=== PATIENT | male | born 1955 | race Caucasian/White ===

== ENCOUNTER → 2022-10-04 | Outpatient (REF) | payer OTHER ==
[~2022-10-04] MED LIST: ASPI81TA26 PO; LIPI20TA PO; LISI5TAB11 PO
[2022-10-04 19:41] LABS: HEMOGLOBIN A1c 4.8 % (4.0-6.0)
[2022-10-04 19:42] LABS: ALKALINE PHOSPHATASE 79 U/L (46-116); ALT/SGPT 25 U/L (7.0-40); AST/SGOT 22 U/L (<34); BILIRUBIN,DIRECT 0.3 MG/DL (<0.4); BLOOD UREA NITROGEN 19 MG/DL (9-23); CALCIUM LEVEL 8.9 MG/DL (8.3-10.6); CARBON DIOXIDE LEVEL 27 MMOL/L (20-31); CHLORIDE LEVEL 104 MMOL/L (98-107); CREATININE FOR GFR 0.94 MG/DL (0.70-1.30); GLOMERULAR FILTRATION RATE > 60.0 (>49); GLUCOSE, FASTING 110 MG/DL (74-106); POTASSIUM SERUM 3.9 MMOL/L (3.5-5.1); SODIUM LEVEL 139 MMOL/L (136-145); TOTAL PROTEIN 6.6 G/DL (5.7-8.2)
== END ==
LOC: M LAB REF 16:44
PROVIDERS: ATTEND Physician Assistant
DX: R17 Unspecified jaundice (principal); R73.9 Hyperglycemia, unspecified

== ENCOUNTER → 2023-03-07 | Outpatient (CLI) | payer OTHER | LOC: M RAD 10:55 | PROVIDERS: ATTEND Physician Assistant | DX: I73.9 Peripheral vascular disease, unspecified (principal) ==

== ENCOUNTER → 2023-09-26 | Outpatient (REF) | payer OTHER ==
[2023-09-26 12:48] LABS: HEMATOCRIT 42.1 % (42.0-52.0); HEMOGLOBIN 15.5 g/dl (13.5-17.5); MEAN CORPUSCULAR HEMOGLOBIN 31.6 pg (27.0-33.0); MEAN CORPUSCULAR HGB CONC 36.8 g/dl (32.0-36.5); MEAN CORPUSCULAR VOLUME 85.7 fl (80.0-96.0); PLATELET COUNT, AUTOMATED 237 10^3/uL (150-450); RED BLOOD COUNT 4.91 10^6/uL (4.30-6.10); WHITE BLOOD COUNT 9.7 10^3/uL (4.0-10.0)
[2023-09-26 13:15] LABS: ALKALINE PHOSPHATASE 86 U/L (46-116); ALT/SGPT 28 U/L (7.0-40); AST/SGOT 16 U/L (<34); BILIRUBIN,TOTAL 1.1 MG/DL (0.3-1.2); BLOOD UREA NITROGEN 19 MG/DL (9-23); CARBON DIOXIDE LEVEL 32 MMOL/L (20-31); CHLORIDE LEVEL 101 MMOL/L (98-107); CHOLESTEROL LEVEL 113 MG/DL (<200); CHOLESTEROL RISK RATIO 3.28 (<5); GLOMERULAR FILTRATION RATE > 60.0 (>49); GLUCOSE, FASTING 160 MG/DL (74-106); HDL CHOLESTEROL 34.4 MG/DL (>40); LDL CHOLESTEROL 39.6 MG/DL (<100); NON-HDL-C 78.6 MG/DL; POTASSIUM SERUM 3.4 MMOL/L (3.5-5.1); PSA SCREENING 0.43 NG/ML (< 4.00); SODIUM LEVEL 140 MMOL/L (136-145); TOTAL PROTEIN 6.4 G/DL (5.7-8.2); TRIGLYCERIDES LEVEL 195 MG/DL (<150)
[2023-09-26 13:17] LABS: THYROID STIMULATING HORMONE 1.875 uIU/ML (0.55-4.78)
== END ==
LOC: M LAB REF 12:10
PROVIDERS: ATTEND Physician Assistant
DX: R17 Unspecified jaundice (principal); I10 Essential (primary) hypertension; E78.5 Hyperlipidemia, unspecified; N40.1 Benign prostatic hyperplasia with lower urinary tract symptoms
CPT/HCPCS: 80053; 80061; 84443; 85027; G0103